=== PATIENT | male | born 2000 | race Caucasian/White ===

== ENCOUNTER 2020-08-22 18:30 | Emergency (ER) | payer BC ==
[~2020-08-22] VITALS: Ht 185.4 cm; Wt 83.9 kg
[2020-08-22] MEDS ORDERED: NORT25CA PO (18:44)
[2020-08-22 19:39] LABS: BASOPHILS % (AUTO) 0.4 % (0.0-2.0); EOSINOPHILS % (AUTO) 0.5 % (0.0-7.0); HEMATOCRIT 45.2 % (36.7-47.1); HEMOGLOBIN 15.6 g/dL (12.5-16.3); LYMPHOCYTES # (AUTO) 1.7 K/uL (20.0-40.0); LYMPHOCYTES % (AUTO) 19.8 % (20.5-74.5); MEAN CORPUSCULAR HEMOGLOBIN 31.4 uug (23.8-33.4); MEAN CORPUSCULAR HGB CONC 35 g/dL (32.5-36.3); MEAN CORPUSCULAR VOLUME 91.1 fL (73.0-96.2); MONOCYTES # (AUTO) 0.4 K/uL (2.0-10.0); MONOCYTES % (AUTO) 4.1 % (0-11); NEUTROPHILS # (AUTO) 6.6 K/uL (1.8-8.9); NEUTROPHILS % (AUTO) 75.2 % (31.5-64.5); PLATELET COUNT (AUTO) 195 K/uL (152-348); RED BLOOD CELL COUNT(AUTO) 4.96 MIL/uL (4.06-5.63); WHITE BLOOD COUNT (AUTO) 8.8 K/uL (3.6-10.2)
[2020-08-22 19:42] LABS: CREATININE 1.2 mg/dL (0.6-1.3); POTASSIUM 3.8 mmol/L (3.5-5.1)
[2020-08-22 20:13] LABS: MAGNESIUM 1.5 mg/dL (1.8-2.4)
--- NOTE | 2020-08-22 21:10 | NUR ---
Dr. Garg at bedside MSE in progress, patient's father also at bedside.
--- NOTE | 2020-08-22 21:40 | NUR ---
Patient discharged to home in stable condition. Written and verbal after care instructions given. Patient verbalizes understanding of instructions. Stressed follow up or return to ER for worsening s/s. Patient has no c/o WHITE, no SOB or labored breathing, Steady gait, accompanied by father.
[2020-08-22 21:42] VITALS: BP 134/70
== END 2020-08-22 21:43 | disposition home or self-care (01) ==
LOC: ER 18:37
DX: E83.42 Hypomagnesemia (principal)
CPT/HCPCS: 36415; 83735; 85025; 85651; A4663